=== PATIENT | female | born 1980 | race Caucasian/White ===

== ENCOUNTER 2023-05-31 08:14 | Outpatient (REF) | payer OTHER, SELFPAY ==
[2023-05-31 10:50] LABS: C Reactive Protein 0.13 mg/dL (< or = 0.50)
[2023-05-31 11:29] LABS: Folate 7.9 ng/mL (> or = 4.0); Vitamin B12 976 pg/mL (200-900)
[2023-06-02 13:28] LABS: Transglutaminase Ab IgG <1.0 U/mL; Transglutaminase IgA <1.0 U/mL
[2023-06-04 16:28] LABS: Vitamin D 25-OH, D2 <4 ng/mL; Vitamin D 25-OH, D3 29 ng/mL; Vitamin D 25-OH, Total 29 ng/mL (30-100)
== END 2023-05-31 08:15 | disposition home or self-care (01) ==
LOC: HO.LAB 08:14
PROVIDERS: PCP Nurse Practitioner Family; Visit Provider Nurse Practitioner Family
DX: K58.9 Irritable bowel syndrome, unspecified (principal); K52.9 Noninfective gastroenteritis and colitis, unspecified; E55.9 Vitamin D deficiency, unspecified; R10.9 Unspecified abdominal pain; K21.9 Gastro-esophageal reflux disease without esophagitis; R15.9 Full incontinence of feces; K90.0 Celiac disease; R14.0 Abdominal distension (gaseous)
CPT/HCPCS: 36415; 82306; 82607; 82746; 86140; 86364; 99202

== ENCOUNTER 2023-05-31 08:15 | Outpatient (AMB) | payer OTHER, SELFPAY ==
--- NOTE | 2023-05-31 08:24 | A.OFFVIS_ITS ---
Intake Vital Signs 05/31/23 08:27 Height 5 ft 1.5 in Weight 152 lb 1.903 oz BMI 28.3 BP 122/69 Blood Pressure Location Lt brachial Position Sitting Pulse 78 Intake Visit Reasons: acid reflux, celiac disease Intake Note: Violet presents in the office as a new patient for acid reflux and celiac. CC: She states that there is no refluxing but she is having excessive belching but she feels like it is SIBO. She has never had treatment but she states that this is all new for her. She gets diarrhea often but denies constipation. Sometimes when she has a BM there is mucus and something there is tissue like she states intestinal tissue . If she eats gluten she will get reflux aside from that she does not have an issue. [employer] Required: No Allergies gluten Allergy (Mild, Verified 05/31/23 08:28) Unknown bees Allergy (Mild, Uncoded 05/31/23 08:28) Unknown HPI acid reflux, celiac disease HPI Details 43-year-old female with no significant p ast medical or surgical history is here today for initial consultation. However she does report that she has celiac disease. Patient reports that she has been having increase symptoms despite avoiding gluten. Patient has been very strict has a home kit that she test for any gluten cross contamination. Patient reports postprandial bloating, and occasional loose stools. Patient denies being constipated. Patient reports mucus in her stools as well as what it looks like tissue parts. Patient reports occasional cramping no significant abdominal discomfort. Patient denies any nausea or vomiting. Denies any right upper quadrant pain postprandially. Patient denies any family history of IBD. Denies any family history of colorectal cancer. Patient reports occasional blood in his stool. Patient reports that she grows her own food. She eats lots of vegetables and fruits. She is following healthy diet. [facility] Medical History (Updated 06/04/23 @ 12:20 by DAVID Eid) Celiac disease Family History (Updated 05/31/23 @ 08:29 by ALIZA Main) Family/Other Colon cancer Review of Systems Const Denies weight gain and Denies weight loss ENT Reports no additional complaints, Denies dysphagia and Denies odynophagia Card Reports no additional complaints Resp Reports no additional complaints GI Reports abdominal pain (Cramping), Denies belching, Denies melena, Reports bloating, Denies dysphagia, Denies excessive flatus, Denies dyspepsia, Denies heartburn, Denies diarrhea, Reports loose stools (Occasionally mucus like stool), Denies nausea, Denies odynophagia and Denies vomiting Reports no additional complaints Musc Reports no additional complaints Neuro Reports no additional complaints Psych Reports no additional complaints Endo Reports no additional complaints Physical Exam Vital Signs: Last Vital Signs Pulse 78 05/31/23 08:27 BP 122/69 05/31/23 08:27 BMI result Body Mass Index 28.3 Const General: healthy appearing, no acute distress and well developed Nutritional Appearance: well nourished Orientation/consciousness: patient oriented x3 Resp Effort & Inspection: normal respiratory effort, able to speak in complete sentences, no tracheal deviation and symmetric chest movement Auscultation: clear to auscultation bilaterally Cardio Rate: regular rate GI Inspection: Yes normal to inspection and No distended Palpation (GI): Soft to palpation, not firm, nontender and No hepatosplenomegaly present Auscultation: normal bowel sounds General: Yes no CVA tenderness Back/Spine/Pelvis Back: no CVA tenderness Skin General skin exam: elasticity normal, turgor normal and dry skin Neuro General: patient oriented x3 Psych Appearance: grossly normal Mental Status: mental status grossly normal Affect: normal affect Assessment & Plan Assessment & Plan (1) Postprandial abdominal bloating: Code(s): R14.0 - Abdominal distension (gaseous) (2) Postprandial diarrhea: Code(s): K52.9 - Noninfective gastroenteritis and colitis, unspecified (3) Celiac disease: Code(s): K90.0 - Celiac disease Plan Will check transglutaminase AB IgG to rule out celiac component, patient will eventually be sent for upper endoscopy with biopsy of small bowel to rule out celiac. CRP, fecal calprotectin to rule out IBD. Will check also if there could be any malabsorption issue. Will check vitamin B12, folate, vitamin-D level. Patient seems to be eating very healthy, however discussed with patient low FODMAP diet. List of food recommended as well as list of food to avoid given to patient. Discussed with patient avoiding dietary triggers. Avoid lactose as well. I will see patient in 5 weeks, sooner on as needed basis. Patient might need to go for colonoscopy as well if her symptoms continue. Patient is agreeable to this plan and verbalizes understanding of instructions. She was given the opportunity to ask questions and all questions answered. Thank you for allowing me to participate in her care Orders: Orders Transglutaminase IgA 05/31/23 R10.9 - Unspecified abdominal pain C Reactive Protein 05/31/23 K58.9 - Irritable bowel syndrome without diarrhea Vitamin B12 and Folate 05/31/23 R19.7 - Diarrhea, unspecified Vitamin D 25-OH (D2 and D3) 05/31/23 E55.9 - Vitamin D deficiency, unspecified Transglutaminase Ab IgG 05/31/23 R10.9 - Unspecified abdominal pain Calprotectin, Fecal 06/03/23 R15.9 - Full incontinence of feces Coding Level of Care Code New Pt Level 4 (63942) Diagnoses Postprandial abdominal bloating R14.0 Postprandial diarrhea K52.9 Celiac disease K90.0 Time Spent (min) 45 Comment 30 minutes spent with patient and additional 15 minutes spent reviewing her records
[2023-05-31 08:27] VITALS: BP 122/69; PULSE 78; BMI 28.3
== END 2023-05-31 09:18 | disposition home or self-care (01) ==
PROVIDERS: Visit Provider Nurse Practitioner Family
DX: R14.0 Abdominal distension (gaseous) (principal); K52.9 Noninfective gastroenteritis and colitis, unspecified; K90.0 Celiac disease
CPT/HCPCS: 99204

== ENCOUNTER 2023-06-03 09:30 | Outpatient (REF) | payer OTHER, SELFPAY ==
[2023-06-09 22:49] LABS: Calprotectin, Fecal <5 mcg/g
== END 2023-06-03 09:31 | disposition home or self-care (01) ==
LOC: HO.LNP 09:30
PROVIDERS: Visit Provider Nurse Practitioner Family
DX: R15.9 Full incontinence of feces (principal)
CPT/HCPCS: 83993

== ENCOUNTER 2023-07-28 07:59 | Outpatient (AMB) | payer OTHER, SELFPAY ==
--- NOTE | 2023-07-28 08:01 | MHC.OFFVIS ---
Intake Vital Signs 07/28/23 08:02 Height 5 ft 1.5 in Weight 161 lb 13.109 oz BMI 30.1 BP 129/62 Blood Pressure Location Lt brachial Position Sitting Pulse 75 Pulse Source Pulse Oximeter Intake Visit Reasons: 5 weeks Follow up Intake Note: Patient here for 8wk follow up acid reflux, celiac. Labs completed on 05-31-23. She states she is feeling well. She states morgan is helping her and she states she also is taking [place] gum which is also helpful. Pt denies any N/V. She states she does get mucous in her stool which she is trying to figure out why. Allergies gluten Allergy (Mild, Verified 07/28/23 08:03) Unknown bees Allergy (Mild, Uncoded 07/28/23 08:03) Unknown HPI 5 weeks Follow up HPI Details LAST VISIT: Postprandial abdominal bloating Postprandial diarrhea Celiac disease Plan Will check transglutaminase AB IgG to rule out celiac component, patient will eventually be sent for upper endoscopy with biopsy of small bowel to rule out celiac. CRP, fecal calprotectin to rule out IBD. Will check also if there could be any malabsorption issue. Will check vitamin B12, folate, vitamin-D level. Patient seems to be eating very healthy, however discussed with patient low FODMAP diet. List of food recommended as well as list of food to avoid given to patient. Discussed with patient avoiding dietary triggers. Avoid lactose as well. I will see patient in 5 weeks, sooner on as needed basis. Patient might need to go for colonoscopy as well if her symptoms continue. Patient is agreeable to this plan and verbalizes understanding of instructions. She was given the opportunity to ask questions and all questions answered. ? Thank you for allowing me to participate in her care Orders Orders Transglutaminase IgA 05/31/23 R10.9 C Reactive Protein 05/31/23 K58.9 Vitamin B12 and Folate 05/31/23 R19.7 Vitamin D 25-OH (D2 and D3) 05/31/23 E55.9 Transglutaminase Ab IgG 05/31/23 R10.9 Calprotectin, Fecal 06/03/23 R15.9 TODAY'S VISIT Patient is here today for follow-up and to discuss lab results. Negative transglutaminase, normal fecal calprotectin as well as normal CRP. Unlikely is IBD. Patient continues with abnormal bowel pattern frequent mucus in her stools. Patient states that she is eating high-fiber diet, continues to avoid gluten. Patient feels like she empties her bowels completely. Patient denies any issues with anesthesia in the past. No history of sleep apnea. Not on any anticoagulation medication patient states that she is taking mustic gum and is feeling better. Patient denies any melena, hematochezia, unintentional weight loss or ribbon like stools. Patient denies any dyspepsia, dysphagia or odynophagia. [facility] Medical History Celiac disease Family History Family/Other Colon cancer Social History Alcohol intake: current Alcohol intake frequency: a few times a month Patient Tobacco Use Status: Never used Tobacco Review of Systems Const Denies weight gain and Denies weight loss ENT Reports no additional complaints, Denies dysphagia and Denies odynophagia Card Reports no additional complaints Resp Reports no additional complaints GI Denies abdominal pain, Denies belching, Denies melena, Denies bloating, Denies change in bowel habits, Denies dysphagia, Denies excessive flatus, Reports dyspepsia (Occasional), Denies heartburn, Denies diarrhea, Denies loose stools, Denies nausea, Denies odynophagia, Denies vomiting and Reports other (Mucousy stool) Musc Reports no additional complaints Neuro Reports no additional complaints Psych Reports no additional complaints Endo Reports no additional complaints Physical Exam Vital Signs: Last Vital Signs Pulse 75 07/28/23 08:02 BP 129/62 07/28/23 08:02 BMI result Body Mass Index 30.1 Const General: healthy appearing, no acute distress and well developed Nutritional Appearance: obese Orientation/consciousness: patient oriented x3 Resp Effort & Inspection: normal respiratory effort, able to speak in complete sentences, no tracheal deviation and symmetric chest movement Auscultation: clear to auscultation bilaterally Cardio Rate: regular rate GI Inspection: Yes normal to inspection, No distended and Yes obesity Palpation (GI): Soft to palpation, not firm, nontender and No hepatosplenomegaly present Auscultation: normal bowel sounds General: Yes no CVA tenderness Back/Spine/Pelvis Back: no CVA tenderness Skin General skin exam: elasticity normal, turgor normal and dry skin Neuro General: patient oriented x3 Psych Appearance: grossly normal Mental Status: mental status grossly normal Assessment & Plan Assessment & Plan (1) Celiac disease: Code(s): K90.0 - Celiac disease (2) Postprandial abdominal bloating: Code(s): R14.0 - Abdominal distension (gaseous) (3) Postprandial diarrhea: Code(s): K52.9 - Noninfective gastroenteritis and colitis, unspecified Plan Continue avoiding gluten. Patient will be sent for upper endoscopy to rule out gastritis, esophagitis, gastric or peptic ulcers, celiac, Boswell's. Patient will be sent for colonoscopy. Abnormal bowel pattern in the last few months. Patient that she mucus frequently in her stool. Denies any melena, hematochezia, unintentional weight loss or ribbon like stools. Patient denies any issues with anesthesia in the past. No history of sleep apnea. Not on any anticoagulation medication. Patient denies any cardiac or respiratory symptoms. I will see patient after the procedure, sooner on as needed basis. Discussed with patient the importance of good bowel prep and clear liquid diet day before procedure. What to expect before during and after the procedure discussed with patient. Patient is agreeable to plan of care and verbalizes understanding of instructions. She was given the opportunity to ask questions and all questions answered. Thank you for allowing me to participate in her care Medications: New polyethylene glycol 3350 (Miralax) As directed by gastroenterology department at [facility] 238 grams PO ONCE 238 grams 0RF Z12.11 - Encounter for screening for malignant neoplasm of colon bisacodyl (Dulcolax (bisacodyl)) take 4 tabs at noon the day before your colonoscopy 20 mg (4 x 5 mg) PO ONCE 1 day 4 tabs 0RF Z12.11 - Encounter for screening for malignant neoplasm of colon Coding Level of Care Code Est Pt Level 4 (01579) Diagnoses Celiac disease K90.0 Postprandial abdominal bloating R14.0 Postprandial diarrhea K52.9 Time Spent (min) 35 Comment 20 minutes spent with patient and additional 15 minutes spent reviewing records
[2023-07-28 08:02] VITALS: BP 129/62; PULSE 75; BMI 30.1
== END 2023-07-28 08:32 | disposition home or self-care (01) ==
PROVIDERS: PCP Nurse Practitioner Family; Referring Provider Nurse Practitioner Family; Visit Provider Nurse Practitioner Family
DX: K90.0 Celiac disease (principal); R14.0 Abdominal distension (gaseous); K52.9 Noninfective gastroenteritis and colitis, unspecified
CPT/HCPCS: 99214

== ENCOUNTER → 2023-07-28 07:59 | Outpatient (BNVA) | payer OTHER, SELFPAY | PROVIDERS: PCP Nurse Practitioner Family; Visit Provider Nurse Practitioner Family | DX: K90.0 Celiac disease (principal); K52.9 Noninfective gastroenteritis and colitis, unspecified; R14.0 Abdominal distension (gaseous) | CPT/HCPCS: 99212 ==

== ENCOUNTER 2023-10-31 11:17 | Day surgery (SDC) | payer OTHER, SELFPAY ==
[2023-10-27 16:02] VITALS: BMI 30.1
--- NOTE | 2023-10-30 09:02 | P.CONAN_ITS ---
Documented by User: Re Isaac NP 10/30/23 09:02 HPI - Anesthesia Eval Consult details Narrative: 43yo F for Upper Endoscopy and Colonoscopy PMFSH Active Problems Active Problems: All Active Problems Celiac disease (Acute) Past Medical History Medical History Celiac disease Family History Family History Family/Other Colon cancer Surgical History Surgical History [place] teeth removed Social History Social History Alcohol intake: current Alcohol intake frequency: a few times a month Patient Tobacco Use Status: Former Tobacco user Use of substances other than those prescribed or required for medical reasons: No Are you DNR?: No Advance Directives: No Advance Directives Information Provided: Yes Meds Allergies Allergy/AdvReac Type Severity Reaction Status Date / Time gluten Allergy Mild Unknown Verified 07/28/23 08:03 bees Allergy Mild Unknown Uncoded 07/28/23 08:03 Home Medications ?Medication ?Instructions ?Recorded ?Confirmed ?Last Taken ?Type thiamine HCl (vitamin B1) 100 mg 50 mg PO DAILY 05/31/23 10/31/23 Unknown History tablet vitamin B complex (B 1 tab PO DAILY 05/31/23 10/31/23 Unknown History Complex-Vitamin B12 tablet) Exam Height,Weight and Vital Signs: Height 5 ft 1.5 in Weight 73.397 kg Assessment and Plan Assessment Anesthesia Assessment: Chart Reviewed Documented by User: Glenn Irwin MD 10/31/23 15:47 PMFSH Past Medical History Medical History Celiac disease Family History Family History Family/Other Colon cancer Family history of problems with anesthesia: No Surgical History Surgical History [place] teeth removed History of Problems with Anesthesia: No Social History Social History Alcohol intake: current Alcohol intake frequency: a few times a month Patient Tobacco Use Status: Former Tobacco user Use of substances other than those prescribed or required for medical reasons: No Are you DNR?: No Advance Directives: No Advance Directives Information Provided: Yes Meds Allergies Allergy/AdvReac Type Severity Reaction Status Date / Time gluten Allergy Mild Unknown Verified 07/28/23 08:03 bees Allergy Mild Unknown Uncoded 07/28/23 08:03 Home Medications ?Medication ?Instructions ?Recorded ?Confirmed ?Last Taken ?Type thiamine HCl (vitamin B1) 100 mg 50 mg PO DAILY 05/31/23 10/31/23 Unknown History tablet vitamin B complex (B 1 tab PO DAILY 05/31/23 10/31/23 Unknown History Complex-Vitamin B12 tablet) Exam Airway Mallampati Class: III TM Dist: >3cm Neck ROM: Full Loose/Missing/Broken Teeth: No Assessment and Plan Assessment Anesthesia Assessment: Anesthesia Plan Discussed Final Anesthetic Review Family History of Problems with Anesthesia: No History of Problems with Anesthesia: No NPO: Yes ASA Class: II Final Preanesthetic Review: No Changes in Pt Med Stat, Meds/Allgs Chart Reviewed, Consent Obtained/Reviewed and Anes Risks/Benef Reviewed Patient Risk: Low Procedure Risk: Low Anesthetic Plan Anesthetic Plan: MAC: Disposition: Standard PACU
[2023-10-31 11:34] LABS: UPreg QC Valid YES; Urine Pregnancy NEGATIVE (NEGATIVE)
[2023-10-31 11:36] VITALS: BP 152/87; PULSE 54; RESP 18; TEMP 36.4; O2SAT 98; BMI 27.9
[2023-10-31 11:42] VITALS: BMI 27.9
--- NOTE | 2023-10-31 12:29 | PC.NURSE ---
pt with angry affect with interview questions in waiting room. upset regarding time change of arrival time from 8:30 to 11:30. updated on 2 patients before her c/o caffeine h/a. offer for cool cloth and light out declined. #22 left hand started ivf LR @ [facility], wo for 15 .
--- NOTE | 2023-10-31 12:40 | PC.NURSE ---
late entry for preop stay: frequent nursing checks and offers for bathroom, warm blanket, lights out all declined. pt ride cannot come after 5pm.
--- NOTE | 2023-10-31 14:11 | P.OPN-COLO_ITS ---
Colonoscopy Operative Note Operative Note Date of Service: 10/31/23 Narrative: Procedure: Upper endoscopy and colonoscopy Indication: ? celiac dz, changes in bowel habits Endoscopist: Trang Fulton MD Anesthesia Provider: Dr Elvira Dubois Anesthesia type: MAC Instrument: [id number] and [id number] EGD Procedure:?? The procedure, indications, preparation and potential complications were reviewed with the patient, who indicated understanding and gave written informed consent to proceed. Physical exam was performed. The endoscope was introduced through the mouth, and advanced to the 2nd part of the duodenum. The mucosa was carefully examined on slow withdrawal of the endoscope. The patient tolerated the procedure well. There were no immediate complications.? EGD Findings:? * Esophagus:? Normal esophageal mucosa. Z line was at 38 cm. * Stomach:? Scant heme in fundus and body. Retroflexion was performed in the cardia. Random cold forceps biopsy were taken from stomach and sent for histology. * Duodenum:? Mild villous blunting noted especially in D2. Cold forceps biopsies were taken from the duodenal bulb and 2nd portion of the duodenal for celiac sprue (of note patient did confirm gluten exposure in the past couple of weeks). Colonoscopy Procedure:? The patient was then turned for the colonoscopy. A digital rectal exam was performed which was normal.? The colonoscope was then inserted through the anus and advanced through the colon and advanced to the cecum at 75 cm and terminal ileum.? Appendiceal orifice and ileocecal valve were identified. Mucosa was carefully examined under high definition white light as the instrument was slowly withdrawn in a retrograde panoramic fashion. Retroflexion was performed in rectum. The procedure was not difficult. The quality of the prep was BBPS: 2+3+2 = adequate Withdrawal time 7 minutes Limitations: No limitations Findings: Mucosa: Normal colon and terminal ileum mucosa. Cold forceps biopsies were taken from the right and left side of the colon to rule out microscopic colitis. Protruding lesions: * Small internal hemorrhoids without stigmata of recent bleeding. Impression: * Normal esophagus * Mild gastritis * Mildly abnormal duodenal mucosa * Normal colon mucosa * Small hemorrhoids Recommendations:?? * Follow-up path results * Repeat colonoscopy for asymptomatic colorectal cancer screening in 7-10 years
--- NOTE | 2023-10-31 14:12 | MHC.SHP ---
Pre-Procedural Eval Section A - 24 Hr Update-Section A only Date of Service: 10/31/23 Section B - Complete if H&P > 30 days Chief Complaint: Noninfective gastroenteritis and colitis,celiac Details of Present Illness: Celiac disease Family History Family/Other Colon cancer Present Medications: see Short Stay Collaborative assessment Allergies: Allergies Allergy/AdvReac Type Severity Reaction Status Date / Time gluten Allergy Mild Unknown Verified 07/28/23 08:03 bees Allergy Mild Unknown Uncoded 07/28/23 08:03 Review of Systems Review of Systems Comment: Ten point ROS negative Exam Exam Comment: Gen appear: No acute distress HEENT: no icterus Chest: No overt resp distress Abd: soft, nontender, nondistended Psych: Stable affect, answering questions appropriately Neuro: A/Ox3 noted to move all extremities spontaneously Ext: no peripheral edema Plan Diagnosis/Plan: Unchanged I have reviewed the history and physical and performed a pertinent physical examination on my patient. No changes have occurred unless specified. Time Spent With Patient Time: Total time managing care of this patient today ____ minutes.
--- NOTE | 2023-10-31 14:51 | PC.NURSE ---
1315 pt reports improvement in caffeine headache s/p iv fluid infusion.
[2023-10-31 15:40] VITALS: BP 113/67; PULSE 98; RESP 18; TEMP 36.1; O2SAT 99
[2023-10-31 15:57] VITALS: BP 134/76; PULSE 98; RESP 18; TEMP 36.1; O2SAT 100
== END 2023-10-31 16:03 | disposition home or self-care (01) ==
PROVIDERS: Nurse Practitioner; PCP Nurse Practitioner Family; Visit Provider Internal Medicine
PROC: (CPT 45380; principal; 2023-10-31 13:20)
DX: R19.4 Change in bowel habit (principal); K90.0 Celiac disease; K29.70 Gastritis, unspecified, without bleeding; K31.89 Other diseases of stomach and duodenum; K64.8 Other hemorrhoids
CPT/HCPCS: 45380; 43239; 81025; 88305; 88313; 88342; J2704

== ENCOUNTER → 2023-10-31 11:17 | Outpatient (BNV) | payer OTHER, SELFPAY | PROVIDERS: PCP Nurse Practitioner Family; Visit Provider Internal Medicine | DX: R19.4 Change in bowel habit (principal); K64.8 Other hemorrhoids; K29.70 Gastritis, unspecified, without bleeding | CPT/HCPCS: 43239; 45380 ==

== ENCOUNTER → 2023-11-17 08:01 | Outpatient (BNVA) | payer OTHER, SELFPAY | PROVIDERS: PCP Nurse Practitioner Family; Visit Provider Nurse Practitioner ==